=== PATIENT | male | born 1975 ===

== ENCOUNTER 2020-12-15 19:54 | Inpatient (IN) | payer OTHER ==
[~2020-12-15] VITALS: Ht 180.3 cm; Wt 79.2 kg
[2020-12-15] MEDS ORDERED: DIPHENHYDRAMINE 50 MG/ML, 1ML ONE (20:28)
[2020-12-15] MEDS ORDERED: METOCLOPRAMIDE 5 MG/ML, 2ML ONE (20:28)
[2020-12-15] MEDS ORDERED: DIPHENHYDRAMINE 50 MG/ML, 1ML IVPush ONE (20:30)
[2020-12-15] MEDS ORDERED: METOCLOPRAMIDE 5 MG/ML, 2ML IVPush ONE (20:30)
[2020-12-15] MEDS ORDERED: SODIUM CHLORIDE 0.9% 1,000ML IVBOLUS ONE (20:30)
[2020-12-15] MEDS ORDERED: SODIUM CHLORIDE FLUSH 10ML SYR IVF ONE (20:30)
--- NOTE | 2020-12-15 21:12 | NUR ---
PT COLOSTOMY PULLED OFF ACCIDENTLY BY PATIENT. PT CLEANED, AND COLSOTOMY BAG REAPPLIED WITH NEW ONE. MULTIPLE WARM BLANKETS GIVEN. PT MEDICATED PER ORDER. WILL MONITOR.
[2020-12-15 21:58] LABS: BASOPHILS % (AUTO) 0 % (0-1); EOSINOPHILS % (AUTO) 1 % (1-7); LYMPHOCYTES % (AUTO) 8 % (22-44); MEAN CORPUSCULAR HEMOGLOBIN 28.6 pg (27.5-34.5); MEAN CORPUSCULAR HGB CONC 33.1 g/dL (33.2-36.2); MEAN PLATELET VOLUME 9.4 fL (7.4-10.4); MONOCYTES % (AUTO) 4 % (2-9); NEUTROPHILS % (AUTO) 87 % (42-75); PLATELET COUNT 181 x10^3/uL (130-400); RED BLOOD COUNT 4.41 x10^6/uL (4.38-5.82); RED CELL DISTRIBUTION WIDTH 13.8 % (9.4-14.8)
[2020-12-15 22:06] LABS: ALANINE AMINOTRANSFERASE 25 U/L (12-78); ALBUMIN 3.9 g/dL (3.4-5.0); ANION GAP 7 mmol/L (5-15); CALCIUM 8.5 mg/dL (8.5-10.1); CHLORIDE 110 mmol/L (98-107); CREATININE 1.09 mg/dL (0.7-1.3)
[2020-12-15 22:08] LABS: ALKALINE PHOSPHATASE 70 U/L (45-117); BILIRUBIN,TOTAL 0.5 mg/dL (0.2-1.0); TOTAL PROTEIN 6.9 g/dL (6.4-8.2)
[2020-12-15 22:18] LABS: MD SCAN
[2020-12-15] MEDS ORDERED: POTASSIUM CHLORIDE 40 MEQ in SODIUM CHLORIDE 0.9% 500 ML IV ONE (22:30)
[2020-12-15] MEDS ORDERED: POTASSIUM CHLORIDE 20 MEQ TAB.ER.PRT PO ONE (22:30)
[2020-12-15] MEDS ORDERED: PROMETHAZINE 25 MG/ML, 1ML ONE (22:46)
--- NOTE | 2020-12-15 22:50 | NUR ---
PT VOMITING. PT GIVEN VOMIT BAG. VSS. PT HAS NO NEEDS AT THIS TIME. CALL LIGHT IN REACH
[2020-12-15 22:59] LABS: TROPONIN I < 0.015 ng/mL (0.000-0.045)
[2020-12-15] MEDS ORDERED: PROMETHAZINE 25 MG/ML, 1ML IM ONE (23:00)
[2020-12-15] MEDS ORDERED: MORPHINE SULFATE 4 MG/ML, 1ML ONE (23:39)
[2020-12-16] MEDS ORDERED: NS + 20MEQ KCL 1,000 ML IV SCH
[2020-12-16] MEDS ORDERED: morphine SULFATE 10 MG/ML, 1ML IVPush PRN
[2020-12-16] MEDS ORDERED: MORPHINE SULFATE 4 MG/ML, 1ML IVPush ONE
--- NOTE | 2020-12-16 00:16 | NUR ---
PT MEDICATED FOR PAIN AND NAUSEA. PT IS DISTRESS AT TIMES, BUT MORE CALM NOW AND RESTING. PT REMAINS A&OX3, WARM BLANKET GIVEN AND BEAR WARMER ATTACHED FOR PT COMFORT. WILL MONITOR.
[2020-12-16] MEDS ORDERED: PROMETHAZINE 25 MG/ML, 1ML ONE ×2 (03:46→10:00)
[2020-12-16] MEDS ORDERED: POTASSIUM CHLORIDE 20 MEQ TAB.ER.PRT ONE ×2 (03:46→03:59)
[2020-12-16] MEDS ORDERED: NS + 20MEQ KCL 1,000 ML IV ONE (03:50)
[2020-12-16] MEDS: PROMETHAZINE 25 MG/ML, 1ML IM PRN ×2 (03:57→10:16)
--- NOTE | 2020-12-16 04:19 | NUR ---
Pt able to rest during shift, still intermittently c/o abd pain and nausea. Pt medicated for nausea. Pt with stable VS, remains A&O, will monitor.
[2020-12-16 05:16] LABS: BASOPHILS % (AUTO) 1 % (0-1); EOSINOPHILS % (AUTO) 0 % (1-7); LYMPHOCYTES % (AUTO) 7 % (22-44); MEAN CORPUSCULAR HEMOGLOBIN 27.9 pg (27.5-34.5); MEAN CORPUSCULAR HGB CONC 32.1 g/dL (33.2-36.2); MEAN PLATELET VOLUME 9.4 fL (7.4-10.4); MONOCYTES % (AUTO) 2 % (2-9); NEUTROPHILS % (AUTO) 90 % (42-75); PLATELET COUNT 184 x10^3/uL (130-400); RED CELL DISTRIBUTION WIDTH 14.1 % (9.4-14.8)
[2020-12-16 05:19] LABS: ANION GAP 8 mmol/L (5-15); CALCIUM 8.8 mg/dL (8.5-10.1); CHLORIDE 110 mmol/L (98-107); CREATININE 0.92 mg/dL (0.7-1.3)
[2020-12-16 05:43] LABS: MD SCAN
--- NOTE | 2020-12-16 06:56 | NUR ---
Pt remains calm at this time, VSS, report to Zackery MENEZES
--- NOTE | 2020-12-16 07:00 | NUR ---
REPORT FROM MARISABEL MENEZES WITH ASSESSMENT PATIENT SLEEPING COMFORTABLY. EVEN/UNLABORED RESPIRATIONS. VSS ON NIBP/POX. ROUSES TO VOICE. DENIES DISCOMFORT/NAUSEA AT THIS TIME
--- NOTE | 2020-12-16 10:17 | NUR ---
Moved to hospital bed provided with "clear Liquid" breakfast tray Updated on estimated poc (awaiting inpatient bed assignment) Medicated per emar for continued nausea
--- NOTE | 2020-12-16 10:54 | NUR ---
PATIENT FEELING MUCH BETTER. THROUGHPUT DELAYED DUE TO CENSUS ISSUE-HOSPITALIST CALLED TO COME EVALUATE PATIENT FOR DISCHARGE. SHE WOULD LIKE REPEAT CMP THEN EVAL CMP ORDERED PATIENT UPDATED ON ESTIMATED POC
--- NOTE | 2020-12-16 11:26 | NUR ---
cmp drawn dr. adan at bedside- to d/c if patient can tolerate regular diet
[2020-12-16 11:42] LABS: ALBUMIN 4.1 g/dL (3.4-5.0); ANION GAP 6 mmol/L (5-15); CALCIUM 8.7 mg/dL (8.5-10.1); CHLORIDE 111 mmol/L (98-107)
[2020-12-16 11:45] LABS: ALANINE AMINOTRANSFERASE 27 U/L (12-78); ALKALINE PHOSPHATASE 78 U/L (45-117); BILIRUBIN,TOTAL 0.9 mg/dL (0.2-1.0); CREATININE 1.05 mg/dL (0.7-1.3); TOTAL PROTEIN 7.3 g/dL (6.4-8.2)
[2020-12-16] MEDS ORDERED: ONDANSETRON 2MG/ML, 2ML ONE (13:03)
[2020-12-16] MEDS: ONDANSETRON 2MG/ML, 2ML IVPush PRN (13:08)
--- NOTE | 2020-12-16 13:13 | NUR ---
DID NOT TOLERATE ADVANCE IN DIET-INCREASE ABD PAIN/NAUSEA. DR. JONES MADE AWARE- TO CONTINUE WITH ADMIT ALSO SWITCH MIVF TO REGULAR NS POTASSIUM CORRECTED ALSO TO COLLECT UTOX-SUSPECT ILLICITS CONTRIBUTING TO SXS (ALTHOUGH PATIENT DENIES) PATIENT UPDATED ON ESTIMATED POC
[2020-12-16] MEDS ORDERED: SODIUM CHLORIDE 0.9% 1,000 ML IV ONE (13:30)
--- NOTE | 2020-12-16 17:20 | NUR ---
WITH REASSESSMENT PATIENT WITH CONTINUED GASTRIC & THROAT PAIN "I FEEL LIKE MY STOMACH IS BLOCKED AND I HAVE TOO MUCH ACID." COVID NOTED TO BE NEGATIVE WELL DR. RAINES MADE AWARE. SHE WOULD LIKE PATIENT "TO NOW GO TO MEDICAL FLOOR FOR CONTINUED HYDRATION AND PLAN FOR SMALL BOWEL FOLLOW THROUGH TOMORROW."
[2020-12-16 17:29] LABS: AMPHETAMINE SCREEN, URINE Negative (Negative); BARBITURATE SCREEN, URINE Negative (Negative); BENZODIAZEPINE SCREEN, URINE Negative (Negative); CANNABINOID SCREEN, URINE Positive (Negative); COCAINE SCREEN, URINE Negative (Negative); METHADONE SCREEN, URINE Negative (Negative); OPIATE SCREEN, URINE Negative (Negative)
--- NOTE | 2020-12-16 17:38 | NUR ---
TP RN NOTE: COVID RESULTED NEGATIVE, MD RAINES NOTIFIED. PO CHALLENGE COMPLETED BY PRIMARY RN RICK PATTEN FAILED PO CHALLENGE. MD RAINES NOTIFIED. ADMIT ORDER CHANGED FROM COVID MONITORED TO MED-SURG. BED REQUESTED FROM MEDICAL FLOOR, HOUSE SUP AWARE.
[2020-12-16] MEDS ORDERED: MAALOX/HYOSCYAMINE/LIDOCAINE 45 ML BTL ONE (17:45)
[2020-12-16] MEDS ORDERED: MAALOX/HYOSCYAMINE/LIDOCAINE 45 ML BTL PO ONE (18:00)
[2020-12-16] MEDS ORDERED: ALBUTEROL SULFATE 2.5 MG/3 ML ONE (18:11)
--- NOTE | 2020-12-16 18:50 | NUR ---
ATTEMPTED TO CALL REPORT X1. NO ANSWER
--- NOTE | 2020-12-16 18:55 | NUR ---
REPORT TO ROSALIA MENEZES
--- NOTE | 2020-12-16 18:58 | NUR ---
bedside report received from Zackery dunbar
[2020-12-16] MEDS: OMEPRAZOLE 20 MG CAPSULE.DR PO SCH (19:00)
[2020-12-16] MEDS ORDERED: OMEPRAZOLE 20 MG CAPSULE.DR ONE (19:07)
--- NOTE | 2020-12-16 19:10 | NUR ---
PT SUPINE ON HOSPITAL BED, NADN, VSS. PT DENIES ANY NEEDS AT THIS TIME. REPORTS "SOME ABD PAIN" DENIES ANY PAIN MEDS AT THIS TIME. CALL LIGHT WITHIN REACH.
--- NOTE | 2020-12-16 19:59 | NUR ---
Pt to be admitted to 3N, room 347. Report called to KARLY MENEZES.
[2020-12-16 21:20] VITALS: BP 113/70
[2020-12-16 22:09] VITALS: BP 113/70
[2020-12-16 22:30] VITALS: BP 113/70
[2020-12-17 01:57] VITALS: BP 160/87
[2020-12-17] MEDS: PROMETHAZINE 25 MG/ML, 1ML IM PRN ×3 (02:52→13:35)
[2020-12-17] MEDS ORDERED: MAALOX/HYOSCYAMINE/LIDOCAINE 45 ML BTL PO ONE (03:00)
[2020-12-17] MEDS: OMEPRAZOLE 20 MG CAPSULE.DR PO SCH ×2 (05:11→15:10)
[2020-12-17] MEDS: KETOROLAC 30 MG/1 ML IVPush SCH ×2 (08:17→13:31)
[2020-12-17 09:42] VITALS: BP 150/87
[2020-12-17] MEDS: ONDANSETRON 2MG/ML, 2ML IVPush PRN (15:16)
[2020-12-17] MEDS ORDERED: PROM25TA10 PO (15:55)
[2020-12-17 19:01] VITALS: BP 123/74
== END 2020-12-17 19:25 | disposition home or self-care (01) | DRG 392 ==
LOC: ED 12-16 01:04 → EDIP 12-16 01:14 → 3N 12-16 20:30
PROVIDERS: ADMIT Internal Medicine; ATTEND Internal Medicine
DX: K29.70 Gastritis, unspecified, without bleeding (principal); D64.9 Anemia, unspecified; E87.6 Hypokalemia; K52.9 Noninfective gastroenteritis and colitis, unspecified; Z20.822 Contact with and (suspected) exposure to COVID-19; M54.9 Dorsalgia, unspecified
CPT/HCPCS: 36415; 71045; 74018; 74240; 80048; 80053; 80307; 83690; 83735; 84484; 85025; 93005; G0378; J1885; J2405; J2550; J3480; J1200; J2270; J2765; J7030; J7040; U0003